=== PATIENT | female | born 1950 | race Caucasian/White ===

== ENCOUNTER 2017-06-29 13:51 | Emergency (ER) | payer BC ==
[2017-06-29 14:03] VITALS: BP 136/57
--- NOTE | 2017-06-29 14:11 | EDM.PDOC ---
ED HPI GENERAL MEDICAL PROBLEM - General Chief Complaint: Neuro Symptoms/Deficits Stated Complaint: DIZZINESS Time Seen by Provider: 06/29/17 14:02 - History of Present Illness INITIAL COMMENTS - FREE TEXT/NARRATIVE: 66-year-old female presents to the emergency room with dizziness. Patient is a history of Mnire's disease. Patient's symptoms started and they really have not gotten any better. 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 Then she spent a week in the hospital trying to get back on her feet. She has not had any hearing loss with this episode. - Related Data Allergies Allergy/AdvReac Type Severity Reaction Status Date / Time codeine AdvReac Intermediate Vomiting Verified 06/29/17 15:49 lactose AdvReac Intermediate Indigestion Verified 06/29/17 15:49 morphine AdvReac Intermediate Vomiting Verified 06/29/17 15:49 dextromethorphan HBr AdvReac Tachycardia Verified 06/29/17 15:49 [From Mucinex Cough] fluticasone propionate AdvReac Tachycardia Verified 06/29/17 15:49 [From Advair Diskus] guaifenesin AdvReac Tachycardia Verified 06/29/17 15:49 [From Mucinex Cough] salmeterol xinafoate AdvReac Tachycardia Verified 06/29/17 15:49 [From Advair Diskus] Home Meds: Home Meds Melatonin 3 mg PO BEDTIME PRN 01/19/14 [History] Sucralfate [Carafate] 1 gm PO DAILY 01/19/14 [History] Levothyroxine [Synthroid] 50 mcg PO DAILY 11/21/15 [History] Ranitidine [Zantac] 150 mg PO BID 11/21/15 [History] Naloxegol Oxalate [Movantik] 25 mg PO DAILY 11/24/15 [History] Lidocaine 5% [Lidoderm 5%] 700 mg TOP DAILY #15 patch 11/27/15 [Rx] Acetaminophen [Tylenol Extra Strength] 500 mg PO Q4HR 06/29/17 [History] Amitriptyline [Elavil] 10 mg PO BEDTIME 06/29/17 [History] Baclofen 10 mg PO BID 06/29/17 [History] Bifidobacterium Infantis [Align] 4 mg PO DAILY 06/29/17 [History] Bisacodyl [Dulcolax] 5 mg PO BEDTIME 06/29/17 [History] Calcium Carbonate [Calcium] 500 mg PO DAILY 06/29/17 [History] Dexlansoprazole [Dexilant] 60 mg PO DAILY 06/29/17 [History] Diazepam [Valium] 1 mg PO BID 06/29/17 [History] Diazepam [Valium] 5 mg PO BID #20 tab 06/29/17 [Rx] Docusate Sodium [Colace] 10 mg PO BEDTIME 06/29/17 [History] Escitalopram Oxalate [Lexapro] 30 mg PO DAILY 06/29/17 [History] Fluorometholone [Fluorometholone 0.1% Ophth Susp] 2 drop IO DAILY 06/29/17 [ History] Furosemide [Lasix] 40 mg PO DAILY 06/29/17 [History] Hydrocodone/Acetaminophen [[place] 10-325 Tablet] 10 - 325 mg PO Q4HR PRN MDD 6/ 24HR 06/29/17 [History] Levothyroxine [Levothyroxine] 50 mg PO ACBREAKFAST 06/29/17 [History] Magnesium Oxide 420 mg PO DAILY 06/29/17 [History] Alloy-3/DHA/Epa/Fish Oil [Alloy-3 Fish Oil 1,000 MG Sfgl] 1,000 mg PO DAILY 08/11 [History] Past Medical History Respiratory History: Reports: COPD Other Respiratory History: Former smoker. Other Gastrointestinal History: gastroparesis; has a g-tube x 2.5 years.patient is now able to eat and is still using G-tube feeds twice daily to supplement her protein intake. 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 has a kidney stone and bladder issues [employer] ARCHITECT History: Reports: Musculoskeletal History: Reports: Back Pain, Chronic, Osteoarthritis, Other ( See Below) Other Musculoskeletal History: neck injury Neurological History: Reports: Migraines Other Neuro History: Pt shakes when she is very cold. Pt had 6 cervicle spine surgeries after a falling off a ladder several years ago. Psychiatric History: Reports: Anxiety, Depression Endocrine/Metabolic History: Reports: Hypothyroidism Oncologic (Cancer) History: Reports: None - Infectious Disease History Infectious Disease History: Reports: Chicken Pox - Past Surgical History HEENT Surgical History: Reports: Cataract Surgery, Tonsillectomy GI Surgical History: Reports: EGD, Other (See Below) Social & Family History - Family History Cardiac: Reports: Other (See Below) Other Cardiac Family History: Grandfather had heart problems. Endocrine/Metabolic: Reports: Diabetes, type II Other Endocrine/Metabolic Family History: Pt states her sisters and mother are obese and have DM. Hematologic: Reports: None - Tobacco Use Smoking Status *Q: Never Smoker Years of Tobacco use: 30 Packs/Tins Daily: 2 Used Tobacco, but Quit: Yes Month Tobacco Last Used: 2010 Second Hand Smoke Exposure: No - Alcohol Use Days Per Week of Alcohol Use: 0 Number of Drinks Per Day: 0 Total Drinks Per Week: 0 - Recreational Drug Use Recreational Drug Use: No Drug Use in Last 12 Months: No - Living Situation & Occupation Living situation: Reports: Occupation: Unemployed ED ROS GENERAL - Review of Systems Review Of Systems: See Below Constitutional: Reports: No Symptoms. Denies: Fever, Chills HEENT: Denies: Ear Discharge, Ear Pain, Hearing Loss, Rhinitis Respiratory: Reports: No Symptoms Cardiovascular: Reports: No Symptoms Endocrine: Reports: No Symptoms GI/Abdominal: Reports: Nausea. Denies: Abdominal Pain, Black Stool, Constipation, Diarrhea, Vomiting : Reports: No Symptoms Musculoskeletal: Reports: No Symptoms Skin: Reports: No Symptoms Neurological: Reports: Gait Disturbance (Secondary to her balance) Psychiatric: Reports: No Symptoms ED EXAM, NEURO - Physical Exam Exam: See Below Exam Limited By: No Limitations General Appearance: Alert, No Apparent Distress Eye Exam: Bilateral Eye: Normal Inspection Ears: Normal External Exam, Normal Canal, Hearing Grossly Normal, Normal TMs Nose: Normal Inspection, Normal Mucosa, No Blood Throat/Mouth: Normal Inspection, Normal Lips, Normal Teeth, Normal Gums, Normal Oropharynx, Normal Voice, No Airway Compromise Head Exam: Atraumatic, Normocephalic Neck: Normal Inspection, Supple, Non-Tender, Full Range of Motion. No: Lymphadenopathy (L), Lymphadenopathy (R) Respiratory/Chest: No Respiratory Distress, Lungs Clear, Normal Breath Sounds Cardiovascular: Regular Rate, Rhythm, No Edema, No Murmur Neurological: Alert, Normal Mood/Affect, Normal Dorsiflexion, CN II-XII Intact, Normal Plantar Flexion, No Motor/Sensory Deficits, Oriented x 3 Course - Vital Signs Last Recorded V/S: Last Vital Signs Temp 36.7 C 06/29/17 13:58 Pulse Resp 15 06/29/17 13:58 BP 136/57 L 06/29/17 13:58 Pulse Ox - Orders/Labs/Meds Orders: Active Orders 24 hr Category Date Time Status EKG Documentation Completion [RC] STAT Care 06/29/17 14:11 Active RAPID PLASMA REAGIN,RPR [CHEM] Stat Lab 06/29/17 14:25 Received Labs: Laboratory Tests 06/29/17 06/29/17 06/29/17 Range/Units 14:25 14:25 14:25 WBC 6.88 (3.98-10.04) K/mm3 RBC 4.60 (3.98-5.22) M/mm3 Hgb 13.5 (11.2-15.7) gm/L Hct 43.5 (34.1-44.9) % MCV 94.6 (79.4-94.8) fl MCH 29.3 (25.6-32.2) pg MCHC 31.0 L (32.2-35.5) g/dl RDW Std Deviation 45.9 (36.4-46.3) fL Plt Count 234 (182-369) K/mm3 MPV 10.0 (9.4-12.3) fl Neutrophils % (Manual) 83 H (40-60) % Band Neutrophils % 0 (0-10) % Lymphocytes % (Manual) 6 L (20-40) % Atypical Lymphs % 7 % Monocytes % (Manual) 4 (2-10) % Eosinophils % (Manual) 0 L (0.7-5.8) % Basophils % (Manual) 0 L (0.1-1.2) Platelet Estimate Adequate Plt Morphology Comment Normal RBC Morph Comment Normal ESR 9 (0-20) mm/hr Sodium 137 (136-145) mEq/L Potassium 4.2 (3.5-5.1) mEq/L Chloride 103 (98-107) mEq/L Carbon Dioxide 28 (21-32) mEq/L Anion Gap 10.2 (5-15) BUN 7 (7-18) mg/dL Creatinine 0.9 (0.55-1.02) mg/dL Est Cr Clr Drug Dosing 47.65 mL/min Estimated GFR (MDRD) > 60 (>60) mL/min BUN/Creatinine Ratio 7.8 L (14-18) Glucose 101 (80-115) mg/dL Calcium 9.2 (8.5-10.1) mg/dL Total Bilirubin 0.2 (0.2-1.0) mg/dL AST 29 (15-37) U/L ALT 29 (14-59) U/L Alkaline Phosphatase 100 (46-116) U/L C-Reactive Protein (<1.0) mg/dL Total Protein 6.9 (6.4-8.2) g/dl Albumin 3.7 (3.4-5.0) g/dl Globulin 3.2 gm/dL Albumin/Globulin Ratio 1.2 (1-2) TSH 3rd Generation 1.094 (0.358-3.74) uIU/mL Urine Color (Yellow) Urine Appearance (Clear) Urine pH (5.0-8.0) Ur Specific [place] (1.005-1.030) Urine Protein (Negative) Urine Glucose (UA) (Negative) Urine Ketones (Negative) Urine Occult Blood (Negative) Urine Nitrite (Negative) Urine Bilirubin (Negative) Urine Urobilinogen (0.2-1.0) Ur Leukocyte Esterase (Negative) Urine RBC (0-5) /hpf Urine WBC (0-5) /hpf Ur Epithelial Cells (0-5) /hpf Urine Bacteria (FEW) /hpf Urine Mucus (FEW) /hpf 06/29/17 06/29/17 Range/Units 14:25 14:30 WBC (3.98-10.04) K/mm3 RBC (3.98-5.22) M/mm3 Hgb (11.2-15.7) gm/L Hct (34.1-44.9) % MCV (79.4-94.8) fl MCH (25.6-32.2) pg MCHC (32.2-35.5) g/dl RDW Std Deviation (36.4-46.3) fL Plt Count (182-369) K/mm3 MPV (9.4-12.3) fl Neutrophils % (Manual) (40-60) % Band Neutrophils % (0-10) % Lymphocytes % (Manual) (20-40) % Atypical Lymphs % % Monocytes % (Manual) (2-10) % Eosinophils % (Manual) (0.7-5.8) % Basophils % (Manual) (0.1-1.2) Platelet Estimate Plt Morphology Comment RBC Morph Comment ESR (0-20) mm/hr Sodium (136-145) mEq/L Potassium (3.5-5.1) mEq/L Chloride (98-107) mEq/L Carbon Dioxide (21-32) mEq/L Anion Gap (5-15) BUN (7-18) mg/dL Creatinine (0.55-1.02) mg/dL Est Cr Clr Drug Dosing mL/min Estimated GFR (MDRD) (>60) mL/min BUN/Creatinine Ratio (14-18) Glucose (80-115) mg/dL Calcium (8.5-10.1) mg/dL Total Bilirubin (0.2-1.0) mg/dL AST (15-37) U/L ALT (14-59) U/L Alkaline Phosphatase (46-116) U/L C-Reactive Protein < 0.2 (<1.0) mg/dL Total Protein (6.4-8.2) g/dl Albumin (3.4-5.0) g/dl Globulin gm/dL Albumin/Globulin Ratio (1-2) TSH 3rd Generation (0.358-3.74) uIU/mL Urine Color Yellow (Yellow) Urine Appearance Clear (Clear) Urine pH 6.5 (5.0-8.0) Ur Specific [place] 1.015 (1.005-1.030) Urine Protein Negative (Negative) Urine Glucose (UA) Negative (Negative) Urine Ketones Negative (Negative) Urine Occult Blood Negative (Negative) Urine Nitrite Negative (Negative) Urine Bilirubin Negative (Negative) Urine Urobilinogen 0.2 (0.2-1.0) Ur Leukocyte Esterase Negative (Negative) Urine RBC 0-5 (0-5) /hpf Urine WBC 0-5 (0-5) /hpf Ur Epithelial Cells 0-5 (0-5) /hpf Urine Bacteria Not seen (FEW) /hpf Urine Mucus Not seen (FEW) /hpf Meds: Medications Discontinued Medications Generic Name Dose Route Start Last Admin Trade Name Harvey PRN Reason Stop Dose Admin Diazepam 5 mg 06/29/17 14:26 06/29/17 14:36 Valium IVPUSH 06/29/17 14:27 5 mg ONETIME ONE Administration - Re-Assessments/Exams Free Text/Narrative Re-Assessment/Exam: 06/29/17 15:16 We will give her Valium 5 mg see if this helps with her symptoms the next step will be Zofran if needed. Will discuss with ear nose and throat awaiting their call back. 06/29/17 15:[address] Pineda on-call for ENT, conservative management to control symptoms and then follow-up with ENT early this next week. Records from [facility] show that apparently the patient was seen by ENT Dr. Hay at [facility] on 06-24. He was treated for sinus congestion inflammation and was having some dizziness at that time. 06/29/17 16:46 Patient is doing much better after the Valium. We will discharge her home I will give her a prescription for Valium 5 mg twice daily currently she's been taking 2 mg twice daily. 06/29/17 16:52 Departure - Departure Time of Disposition: 16:47 Disposition: Home, Self-Care 01 Clinical Impression: Dizziness, History of Meniere's disease - Discharge Information Prescriptions: Diazepam [Valium] 5 mg PO BID #20 tab Referrals: Joshua Moya MD [Primary Care Provider] - Forms: ED Department Discharge Additional Instructions: Return to emergency room if any questions problems worsening symptoms. Follow-up with your nose and throat doctor early this next week Saturday or Saturday if possible. You been given a prescription for Valium increase this to 5 mg twice daily as this seems to be helping use your meclizine as needed. - My Orders Last 24 Hours: My Active Orders 06/29/17 14:11 EKG Documentation Completion [RC] STAT 06/29/17 14:25 RAPID PLASMA REAGIN,RPR [CHEM] Stat - Assessment/Plan Last 24 Hours: My Active Orders 06/29/17 14:11 EKG Documentation Completion [RC] STAT 06/29/17 14:25 RAPID PLASMA REAGIN,RPR [CHEM] Stat
== END 2017-06-29 17:13 | disposition home or self-care (01) ==
LOC: JD.ED 13:51
DX: R42 Dizziness and giddiness (principal); Z86.69 Personal history of other diseases of the nervous system and sense organs; J44.9 Chronic obstructive pulmonary disease, unspecified; F32.9 Major depressive disorder, single episode, unspecified; E03.9 Hypothyroidism, unspecified; Z87.891 Personal history of nicotine dependence; Z79.899 Other long term (current) drug therapy; Z88.5 Allergy status to narcotic agent; Z88.8 Allergy status to other drugs, medicaments and biological substances; Z91.011 Allergy to milk products
CPT/HCPCS: 36415; 80053; 81001; 84443; 85025; 85652; 86140; 86592; 93005; 96374; 99284; J3360

== ENCOUNTER 2019-05-30 15:56 | Emergency (ER) | payer MEDICARE, BC ==
[2019-05-30 16:06] VITALS: BP 167/80; PULSE 82
[2019-05-30] MEDS ORDERED: Sodium Chloride 0.9% 10 ML Syringe FLUSH PRN (16:42)
[2019-05-30] MEDS ORDERED: Sodium Chloride 0.9% 1,000 ML IV ONE (16:42)
--- NOTE | 2019-05-30 17:28 | EDM.PDOC ---
ED HPI GENERAL MEDICAL PROBLEM - General Chief Complaint: Neurological Problem Stated Complaint: DIZZINESS Time Seen by Provider: 05/30/19 16:30 Source of Information: Reports: Patient History Limitations: Reports: No Limitations - History of Present Illness INITIAL COMMENTS - FREE TEXT/NARRATIVE: Malissa is a 58-year-old female presents today for a dizziness and confusion. She states that this afternoon she developed dizziness and nausea. She describes the dizziness as tunnel vision. She denies any lightheadedness or syncope. She reports that she was shaky in her legs would not work. She felt nauseated but did not vomit. She reports that she has headaches all the time, no change. She denies any chest pains but states that she felt short of breath. No urinary symptoms. No ear pain. No fevers, chills, nausea or vomiting. She states she has been burping up some gas. She reports she's had diarrhea for several weeks but no blood in her stool. She's also been having a decreased appetite. Feel that her symptoms today are related to not eating much and not drinking much. She also uses medical marijuana for the first time today. She also start linzess about 2-4 weeks ago. This has been causing diarrhea and a decreased appetite. She sees Dr. Moya in [place] and Dr. Powell in [place]. She is on medical marijuana for pain. - Related Data Allergies Allergy/AdvReac Type Severity Reaction Status Date / Time codeine AdvReac Intermediate Vomiting Verified 05/30/19 16:06 lactose AdvReac Intermediate Indigestion Verified 05/30/19 16:06 morphine AdvReac Intermediate Vomiting Verified 05/30/19 16:06 dextromethorphan HBr AdvReac Tachycardia Verified 05/30/19 16:06 [From Mucinex Cough] fluticasone propionate AdvReac Tachycardia Verified 05/30/19 16:06 [From Advair Diskus] guaifenesin AdvReac Tachycardia Verified 05/30/19 16:06 [From Mucinex Cough] salmeterol xinafoate AdvReac Tachycardia Verified 05/30/19 16:06 [From Advair Diskus] Home Meds: Home Meds Melatonin 3 mg PO BEDTIME PRN 01/19/14 [History] Levothyroxine [Synthroid] 50 mcg PO DAILY 11/21/15 [History] Ranitidine [Zantac] 150 mg PO BID 11/21/15 [History] Naloxegol Oxalate [Movantik] 25 mg PO DAILY 11/24/15 [History] Lidocaine 5% [Lidoderm 5%] 700 mg TOP DAILY #15 patch 11/27/15 [Rx] Acetaminophen [Tylenol Extra Strength] 500 mg PO Q4HR 06/29/17 [History] Amitriptyline [Elavil] 30 mg PO BEDTIME 06/29/17 [History] Baclofen 10 mg PO BID 06/29/17 [History] Bifidobacterium Infantis [Align] 4 mg PO DAILY 06/29/17 [History] Calcium Carbonate [Calcium] 500 mg PO DAILY 06/29/17 [History] Docusate Sodium [Colace] 10 mg PO BEDTIME 06/29/17 [History] Escitalopram Oxalate [Lexapro] 30 mg PO DAILY 06/29/17 [History] Fluorometholone [Fluorometholone 0.1% Ophth Susp] 2 drop IO DAILY 06/29/17 [ History] Furosemide [Lasix] 40 mg PO DAILY 06/29/17 [History] Hydrocodone/Acetaminophen [[place] 10-325 Tablet] 10 - 325 mg PO Q4HR PRN MDD 6/ 24HR 06/29/17 [History] Magnesium Oxide 420 mg PO DAILY 06/29/17 [History] [place]-3/DHA/Epa/Fish Oil [[place]-3 Fish Oil 1,000 MG Sfgl] 1,000 mg PO DAILY 08/11 [History] bisacodyL [Dulcolax] 5 mg PO BEDTIME 06/29/17 [History] diazePAM [Valium] 5 mg PO BID #20 tab 06/29/17 [Rx] Past Medical History Respiratory History: Reports: COPD Other Respiratory History: Former smoker. Gastrointestinal History: Reports: Chronic Constipation, Gastritis, GI Bleed Other Gastrointestinal History: gastroparesis; has a g-tube x 2.5 years.patient is now able to eat and is still using G-tube feeds twice daily to supplement her protein intake. 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 Pt had 6 cervicle spine surgeries after a falling off a ladder several years ago. Psychiatric History: Reports: Anxiety, Depression Endocrine/Metabolic History: Reports: Hypothyroidism Hematologic History: Reports: Anemia, Blood Transfusion(s) Other Hematologic History: Potassium Oncologic (Cancer) History: Reports: None - Infectious Disease History Infectious Disease History: Reports: Chicken Pox - Past Surgical History HEENT Surgical History: Reports: Cataract Surgery, Tonsillectomy GI Surgical History: Reports: EGD, Other (See Below) Other GI Surgeries/Procedures: cytocele surgery Social & Family History - Family History Family Medical History: Noncontributory Cardiac: Reports: Other (See Below) Other Cardiac Family History: Grandfather had heart problems. Endocrine/Metabolic: Reports: Diabetes, type II Other Endocrine/Metabolic Family History: Pt states her sisters and mother are obese and have DM. Hematologic: Reports: None - Tobacco Use Smoking Status *Q: Never Smoker Second Hand Smoke Exposure: No - Caffeine Use Caffeine Use: Reports: None - Recreational Drug Use Recreational Drug Use: No - Living Situation & Occupation Living situation: Reports: Occupation: Unemployed ED ROS GENERAL - Review of Systems Review Of Systems: See Below Constitutional: Reports: Decreased Appetite. Denies: Fever, Chills HEENT: Denies: Ear Pain Respiratory: Reports: Shortness of Breath Cardiovascular: Denies: Chest Pain GI/Abdominal: Denies: Nausea, Vomiting : Reports: No Symptoms Neurological: Reports: Confusion, Dizziness, Headache (constant, no change), Difficulty Walking, Weakness. Denies: Numbness, Syncope, Tingling Psychiatric: Reports: Anxiety, Confusion ED EXAM, NEURO - Physical Exam Exam: See Below Exam Limited By: No Limitations General Appearance: Alert, WD/WN, No Apparent Distress, Thin Eye Exam: Bilateral Eye: Normal Inspection, PERRL Ears: Normal External Exam, Normal Canal, Hearing Grossly Normal, Normal TMs Nose: Normal Inspection Throat/Mouth: Normal Inspection, Normal Lips, Normal Teeth, Normal Oropharynx, Normal Voice, No Airway Compromise Respiratory/Chest: No Respiratory Distress, Lungs Clear, Normal Breath Sounds Cardiovascular: Normal Peripheral Pulses, Regular Rate, Rhythm, No Murmur GI/Abdominal: Normal Bowel Sounds, Soft, Non-Tender Neurological: Alert, Normal Mood/Affect, Normal Dorsiflexion, CN II-XII Intact, Normal Plantar Flexion, Other (normal finger to nose testing, normal heel to cavanaugh testing, no pronator drift, 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 segment changes. Reviewed by myself and Dr. Macias. Course - Vital Signs Last Recorded V/S: Last Vital Signs Temp 98.2 F 05/30/19 16:03 Pulse 82 05/30/19 16:03 Resp 16 05/30/19 16:03 BP 167/80 H 05/30/19 16:03 Pulse Ox 100 05/30/19 16:03 Orthostatic Blood Pressure [ 147/71 Standing] Orthostatic Blood Pressure [ 140/64 Sitting] Orthostatic Blood Pressure [ 140/71 Supine] - Orders/Labs/Meds Orders: Active Orders 24 hr Category Date Time Status Cardiac Monitoring [RC] . DIRECTED Care 05/30/19 16:42 Active EKG Documentation Completion [RC] ASDIRECTED Care 05/30/19 16:42 Active Orthostatic Vital Signs [RC] ASDIRECTED Care 05/30/19 16:42 Active Peripheral IV Care [RC] . DIRECTED Care 05/30/19 16:42 Active Peripheral IV Insertion Adult [OM.PC] Routine Oth 05/30/19 16:42 Ordered EKG 12 Lead [EK] Stat Ther 05/30/19 16:42 Ordered Labs: Laboratory Tests 05/30/19 05/30/19 05/30/19 Range/Units 16:55 16:55 17:34 WBC 7.44 (3.98-10.04) K/mm3 RBC 4.25 (3.98-5.22) M/mm3 Hgb 12.4 (11.2-15.7) gm/dl Hct 38.0 (34.1-44.9) % MCV 89.4 (79.4-94.8) fl MCH 29.2 (25.6-32.2) pg MCHC 32.6 (32.2-35.5) g/dl RDW Std Deviation 43.9 (36.4-46.3) fL Plt Count 253 (182-369) K/mm3 MPV 9.7 (9.4-12.3) fl Neut % (Auto) 85.2 H (34.0-71.1) % Lymph % (Auto) 8.5 L (19.3-51.7) % [place] % (Auto) 5.9 (4.7-12.5) % Eos % (Auto) 0 L (0.7-5.8) Baso % (Auto) 0.4 (0.1-1.2) % Neut # (Auto) 6.34 H (1.56-6.13) K/mm3 Lymph # (Auto) 0.63 L (1.18-3.74) K/mm3 [place] # (Auto) 0.44 H (0.24-0.36) K/mm3 Eos # (Auto) 0.00 L (0.04-0.36) K/mm3 Baso # (Auto) 0.03 (0.01-0.08) K/mm3 Manual Slide Review Abnormal smear Sodium 130 L (136-145) mEq/L Potassium 3.9 (3.5-5.1) mEq/L Chloride 95 L (98-107) mEq/L Carbon Dioxide 27 (21-32) mEq/L Anion Gap 11.9 (5-15) BUN 24 H (7-18) mg/dL Creatinine 1.0 (0.55-1.02) mg/dL Est Cr Clr Drug Dosing 41.76 mL/min Estimated GFR (MDRD) 55 (>60) mL/min BUN/Creatinine Ratio 24.0 H (14-18) Glucose 145 H (80-115) mg/dL Calcium 8.9 (8.5-10.1) mg/dL Magnesium 1.7 L (1.8-2.4) mg/dl Total Bilirubin 0.2 (0.2-1.0) mg/dL AST 31 (15-37) U/L ALT 34 (14-59) U/L Alkaline Phosphatase 95 (46-116) U/L Total Protein 6.7 (6.4-8.2) g/dl Albumin 3.6 (3.4-5.0) g/dl Globulin 3.1 gm/dL Albumin/Globulin Ratio 1.2 (1-2) TSH 3rd Generation 0.724 (0.358-3.74) uIU/mL Urine Color Yellow (Yellow) Urine Appearance Clear (Clear) Urine pH 6.5 (5.0-8.0) Ur Specific [place] 1.020 (1.005-1.030) Urine Protein Negative (Negative) Urine Glucose (UA) Negative (Negative) Urine Ketones Negative (Negative) Urine Occult Blood Trace-intact H (Negative) Urine Nitrite Negative (Negative) Urine Bilirubin Negative (Negative) Urine Urobilinogen 0.2 (0.2-1.0) Ur Leukocyte Esterase Negative (Negative) Urine RBC 5-10 H (0-5) /hpf Urine WBC 0-5 (0-5) /hpf Ur Squamous Epith Cells 5-10 H (0-5) /hpf Urine Bacteria Few (FEW) /hpf Urine Mucus Few (FEW) /hpf Urine Opiates Screen (IRWVXK=381) Ur Buprenorphine Scrn (CUTOFF=10) Ur Oxycodone Screen (AUD1KS=777) Urine Methadone Screen (YANCQB=762) Ur Propoxyphene Screen (SRBRSO=849) Ur Barbiturates Screen (DQGIWU=486) Ur Tricyclics Screen (JQJABR=798) Ur Phencyclidine Scrn (CUTOFF=25) Ur Amphetamine Screen (DOOAVJ=927) U Methamphetamines Scrn (HOXUKF=190) U Benzodiazepines Scrn (SLKGYM=945) U Cocaine Metab Screen (VOOXHR=474) U Marijuana (THC) Screen (CUTOFF=50) 05/30/19 Range/Units 17:34 WBC (3.98-10.04) K/mm3 RBC (3.98-5.22) M/mm3 Hgb (11.2-15.7) gm/dl Hct (34.1-44.9) % MCV (79.4-94.8) fl MCH (25.6-32.2) pg MCHC (32.2-35.5) g/dl RDW Std Deviation (36.4-46.3) fL Plt Count (182-369) K/mm3 MPV (9.4-12.3) fl Neut % (Auto) (34.0-71.1) % Lymph % (Auto) (19.3-51.7) % [place] % (Auto) (4.7-12.5) % Eos % (Auto) (0.7-5.8) Baso % (Auto) (0.1-1.2) % Neut # (Auto) (1.56-6.13) K/mm3 Lymph # (Auto) (1.18-3.74) K/mm3 [place] # (Auto) (0.24-0.36) K/mm3 Eos # (Auto) (0.04-0.36) K/mm3 Baso # (Auto) (0.01-0.08) K/mm3 Manual Slide Review Sodium (136-145) mEq/L Potassium (3.5-5.1) mEq/L Chloride (98-107) mEq/L Carbon Dioxide (21-32) mEq/L Anion Gap (5-15) BUN (7-18) mg/dL Creatinine (0.55-1.02) mg/dL Est Cr Clr Drug Dosing mL/min Estimated GFR (MDRD) (>60) mL/min BUN/Creatinine Ratio (14-18) Glucose (80-115) mg/dL Calcium (8.5-10.1) mg/dL Magnesium (1.8-2.4) mg/dl Total Bilirubin (0.2-1.0) mg/dL AST (15-37) U/L ALT (14-59) U/L Alkaline Phosphatase (46-116) U/L Total Protein (6.4-8.2) g/dl Albumin (3.4-5.0) g/dl Globulin gm/dL Albumin/Globulin Ratio (1-2) TSH 3rd Generation (0.358-3.74) uIU/mL Urine Color (Yellow) Urine Appearance (Clear) Urine pH (5.0-8.0) Ur Specific [place] (1.005-1.030) Urine Protein (Negative) Urine Glucose (UA) (Negative) Urine Ketones (Negative) Urine Occult Blood (Negative) Urine Nitrite (Negative) Urine Bilirubin (Negative) Urine Urobilinogen (0.2-1.0) Ur Leukocyte Esterase (Negative) Urine RBC (0-5) /hpf Urine WBC (0-5) /hpf Ur Squamous Epith Cells (0-5) /hpf Urine Bacteria (FEW) /hpf Urine Mucus (FEW) /hpf Urine Opiates Screen Presumptive positive H (WQDMLB=969) Ur Buprenorphine Scrn Negative (CUTOFF=10) Ur Oxycodone Screen Negative (KOM6GO=984) Urine Methadone Screen Negative (CYRULZ=068) Ur Propoxyphene Screen Negative (VBXFXL=077) Ur Barbiturates Screen Negative (GTZIHF=773) Ur Tricyclics Screen Presumptive positive H (EAIAZR=881) Ur Phencyclidine Scrn Negative (CUTOFF=25) Ur Amphetamine Screen Negative (BIXFRT=557) U Methamphetamines Scrn Negative (SNQICQ=957) U Benzodiazepines Scrn Presumptive positive H (CVWCAO=181) U Cocaine Metab Screen Negative (QJMMXB=414) U Marijuana (THC) Screen Presumptive positive H (CUTOFF=50) Meds: Medications Discontinued Medications Generic Name Dose Route Start Last Admin Trade Name Freq PRN Reason Stop Dose Admin Sodium Chloride 1,000 mls @ 999 mls/hr 05/30/19 16:42 05/30/19 16:58 Normal Saline IV 05/30/19 17:42 999 mls/hr ONETIME ONE Administration Sodium Chloride 10 ml 05/30/19 16:42 05/30/19 16:58 Saline Flush FLUSH 10 ml ASDIRECTED PRN Administration Keep Vein Open - Radiology Interpretation Free Text/Narrative:: Head CT Technique: Multiple axial sections through the brain were obtained. Intravenous contrast was not utilized. Comparison: Prior head CT study of 11/06/09. Findings: Ventricles along with basal cisterns and sulci over the convexities are within normal limits for the patient's age. No abnormal parenchymal densities are seen. No evidence of intracranial hemorrhage. No midline shift or mass effect is present. No midline shift or mass effect is seen. Bone window settings were reviewed. Visualized mastoid sinuses and paranasal sinuses are clear. No acute calvarial abnormality is appreciated. Impression: 1. Nothing acute is seen on noncontrast head CT exam. Diagnostic code #1 This report was dictated in [place] Standard Time - Re-Assessments/Exams Free Text/Narrative Re-Assessment/Exam: 05/30/19 19:07 I reviewed her labs, ekg and head CT with her. She reprots feeling greatly improved after the IV fluids. I feel her symptoms are most likely caused by her multiple medications and some slight dehydration. I will discharge her home at this time. Discharge instructions as documented. Departure - Departure Time of Disposition: 19:07 Disposition: Home, Self-Care 01 Condition: Good Clinical Impression: Dehydration, Hyponatremia - Discharge Information *PRESCRIPTION DRUG MONITORING PROGRAM REVIEWED*: No *COPY OF PRESCRIPTION DRUG MONITORING REPORT IN PATIENT HARSH: No Instructions: Hyponatremia, [id number], Dehydration, Adult, [id number] Referrals: Joshua Moya MD [Primary Care Provider] - Forms: ED Department Discharge Additional Instructions: Recommend drinking plenty of fluids. You may also increase your salt intake. Follow-up with your primary care provider if your symptoms continue. Please return the ER for symptoms change or worsen. Sepsis Event Note - Evaluation Sepsis Screening Result: No Definite Risk - Focused Exam Vital Signs: Vital Signs Temp Pulse Resp BP Pulse Ox 05/30/19 16:03 98.2 F 82 16 167/80 H 100 Date Exam was Performed: 05/30/19 Time Exam was Performed: 20:25 - My Orders Last 24 Hours: My Active Orders 05/30/19 16:42 Cardiac Monitoring [RC] . DIRECTED EKG Documentation Completion [RC] ASDIRECTED Orthostatic Vital Signs [RC] ASDIRECTED Peripheral IV Care [RC] . DIRECTED Peripheral IV Insertion Adult [OM.PC] Routine EKG 12 Lead [EK] Stat - Assessment/Plan Last 24 Hours: My Active Orders 05/30/19 16:42 Cardiac Monitoring [RC] . DIRECTED EKG Documentation Completion [RC] ASDIRECTED Orthostatic Vital Signs [RC] ASDIRECTED Peripheral IV Care [RC] . DIRECTED Peripheral IV Insertion Adult [OM.PC] Routine EKG 12 Lead [EK] Stat
--- NOTE | 2019-05-30 17:47 | CT ---
Head CT Technique: Multiple axial sections through the brain were obtained. Intravenous contrast was not utilized. Comparison: Prior head CT study of 11/06/09. Findings: Ventricles along with basal cisterns and sulci over the convexities are within normal limits for the patient's age. No abnormal parenchymal densities are seen. No evidence of intracranial hemorrhage. No midline shift or mass effect is present. No midline shift or mass effect is seen. Bone window settings were reviewed. Visualized mastoid sinuses and paranasal sinuses are clear. No acute calvarial abnormality is appreciated. Impression: 1. Nothing acute is seen on noncontrast head CT exam. Diagnostic code #1 This report was dictated in [place] Standard Time
== END 2019-05-30 19:30 | disposition home or self-care (01) ==
LOC: JD.ED 15:56
DX: E86.0 Dehydration (principal); E87.1 Hypo-osmolality and hyponatremia; J44.9 Chronic obstructive pulmonary disease, unspecified; M19.90 Unspecified osteoarthritis, unspecified site; F41.9 Anxiety disorder, unspecified; F32.9 Major depressive disorder, single episode, unspecified; E03.9 Hypothyroidism, unspecified; Z87.891 Personal history of nicotine dependence; Z88.5 Allergy status to narcotic agent; Z88.8 Allergy status to other drugs, medicaments and biological substances; Z79.899 Other long term (current) drug therapy
CPT/HCPCS: 36415; 70450; 80053; 80306; 81001; 83735; 84443; 85025; 93005; 96360; 99284; J7030; 93010

== ENCOUNTER 2019-06-02 16:11 | Emergency (ER) | payer MEDICARE, BC ==
[2019-06-02 16:35] VITALS: BP 142/95; PULSE 69
--- NOTE | 2019-06-02 17:47 | EDM.PDOC ---
ED HPI GENERAL MEDICAL PROBLEM - General Chief Complaint: Neurological Problem Stated Complaint: DIZZINESS Time Seen by Provider: 06/02/19 17:02 - History of Present Illness INITIAL COMMENTS - FREE TEXT/NARRATIVE: 68-year-old female presents to the emergency room with dizziness and just not feeling like herself. The patient for the second time tried medicinal marijuana edibles for her chronic neck and back pain. The last time she did that she ended up in here and was not fully evaluated for dizziness. She tried it again today she is lost her appetite she is dizzy the dizziness does not seem to correlate with activity turning her head standing up or position changes. She just does not feel herself and feels odd. - Related Data Allergies Allergy/AdvReac Type Severity Reaction Status Date / Time codeine AdvReac Intermediate Vomiting Verified 05/30/19 16:06 lactose AdvReac Intermediate Indigestion Verified 05/30/19 16:06 morphine AdvReac Intermediate Vomiting Verified 05/30/19 16:06 dextromethorphan HBr AdvReac Tachycardia Verified 05/30/19 16:06 [From Mucinex Cough] fluticasone propionate AdvReac Tachycardia Verified 05/30/19 16:06 [From Advair Diskus] guaifenesin AdvReac Tachycardia Verified 05/30/19 16:06 [From Mucinex Cough] salmeterol xinafoate AdvReac Tachycardia Verified 05/30/19 16:06 [From Advair Diskus] Home Meds: Home Meds Melatonin 3 mg PO BEDTIME PRN 01/19/14 [History] Levothyroxine [Synthroid] 50 mcg PO DAILY 11/21/15 [History] Ranitidine [Zantac] 150 mg PO BID 11/21/15 [History] Naloxegol Oxalate [Movantik] 25 mg PO DAILY 11/24/15 [History] Acetaminophen [Tylenol Extra Strength] 500 mg PO Q4HR 06/29/17 [History] Amitriptyline [Elavil] 30 mg PO BEDTIME 06/29/17 [History] Baclofen 10 mg PO BID 06/29/17 [History] Bifidobacterium Infantis [Align] 4 mg PO DAILY 06/29/17 [History] Calcium Carbonate [Calcium] 500 mg PO DAILY 06/29/17 [History] Docusate Sodium [Colace] 10 mg PO BEDTIME 06/29/17 [History] Escitalopram Oxalate [Lexapro] 30 mg PO DAILY 06/29/17 [History] Fluorometholone [Fluorometholone 0.1% Ophth Susp] 2 drop IO DAILY 06/29/17 [ History] Furosemide [Lasix] 40 mg PO DAILY 06/29/17 [History] Hydrocodone/Acetaminophen [[place] 10-325 Tablet] 10 - 325 mg PO Q4HR PRN MDD 6/ 24HR 06/29/17 [History] Magnesium Oxide 420 mg PO DAILY 06/29/17 [History] [place]-3/DHA/Epa/Fish Oil [[place]-3 Fish Oil 1,000 MG Sfgl] 1,000 mg PO DAILY 08/11 [History] bisacodyL [Dulcolax] 5 mg PO BEDTIME 06/29/17 [History] diazePAM [Valium] 5 mg PO BID #20 tab 06/29/17 [Rx] Medical Marijuana 1 applic PO ASDIRECTED 06/02/19 [History] Past Medical History Respiratory History: Reports: COPD Other Respiratory History: Former smoker. Gastrointestinal History: Reports: Chronic Constipation, Gastritis, GI Bleed Other Gastrointestinal History: gastroparesis; has a g-tube x 2.5 years.patient is now able to eat and is still using G-tube feeds twice daily to supplement her protein intake. 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 Pt had 6 cervicle spine surgeries after a falling off a ladder several years ago. Psychiatric History: Reports: Anxiety, Depression Endocrine/Metabolic History: Reports: Hypothyroidism Hematologic History: Reports: Anemia, Blood Transfusion(s) Other Hematologic History: Potassium Oncologic (Cancer) History: Reports: None - Infectious Disease History Infectious Disease History: Reports: Chicken Pox - Past Surgical History HEENT Surgical History: Reports: Cataract Surgery, Tonsillectomy GI Surgical History: Reports: EGD, Other (See Below) Other GI Surgeries/Procedures: cytocele surgery Social & Family History - Family History Family Medical History: Noncontributory Cardiac: Reports: Other (See Below) Other Cardiac Family History: Grandfather had heart problems. Endocrine/Metabolic: Reports: Diabetes, type II Other Endocrine/Metabolic Family History: Pt states her sisters and mother are obese and have DM. Hematologic: Reports: None - Tobacco Use Smoking Status *Q: Former Smoker Used Tobacco, but Quit: Yes Month/Year Tobacco Last Used: 2014 - Caffeine Use Caffeine Use: Reports: Soda - Recreational Drug Use Recreational Drug Use: No - Living Situation & Occupation Living situation: Reports: Occupation: Unemployed ED ROS GENERAL - Review of Systems Review Of Systems: See Below Constitutional: Reports: Other (No ambition she does not feel like she can do anything). Denies: No Symptoms, Fever, Chills HEENT: Reports: No Symptoms Respiratory: Reports: No Symptoms Cardiovascular: Reports: No Symptoms Endocrine: Reports: No Symptoms GI/Abdominal: Reports: Anorexia. Denies: No Symptoms, Abdominal Pain, Constipation, Diarrhea, Nausea, Vomiting : Reports: No Symptoms Musculoskeletal: Reports: No Symptoms Skin: Reports: No Symptoms Neurological: Reports: Confusion, Dizziness. Denies: Headache Psychiatric: Reports: No Symptoms Hematologic/Lymphatic: Reports: No Symptoms Immunologic: Reports: No Symptoms ED EXAM, GENERAL - Physical Exam Exam: See Below Exam Limited By: No Limitations General Appearance: Alert, No Apparent Distress Eye Exam: Bilateral Eye: EOMI, Normal Inspection, PERRL Ears: Normal External Exam, Normal Canal, Hearing Grossly Normal, Normal TMs Nose: Normal Inspection, Normal Mucosa, No Blood Throat/Mouth: Normal Inspection, Normal Lips, Normal Gums, Normal Oropharynx, Normal Voice, No Airway Compromise. No: Normal Teeth (Dentures in place) Head: Atraumatic, Normocephalic Neck: Normal Inspection, Supple, Non-Tender, Full Range of Motion. No: Lymphadenopathy (L), Lymphadenopathy (R) Respiratory/Chest: No Respiratory Distress, Lungs Clear, Normal Breath Sounds Cardiovascular: Regular Rate, Rhythm, No Edema, No Murmur GI/Abdominal: Normal Bowel Sounds, Soft, Non-Tender Back Exam: Normal Inspection. No: CVA Tenderness (L), CVA Tenderness (R) Extremities: Normal Inspection, No Pedal Edema Neurological: Other (No nerves II through XII grossly intact all muscle groups the upper extremities are equal and appropriate bilaterally deep tendon reflexes at the brachioradialis are normal. Hallpike's maneuver is unrevealing. ) Course - Vital Signs Last Recorded V/S: Last Vital Signs Temp 37.2 C 06/02/19 16:34 Pulse 69 06/02/19 16:34 Resp 20 06/02/19 16:34 BP 142/95 H 06/02/19 16:34 Pulse Ox 97 06/02/19 16:34 - Re-Assessments/Exams Free Text/Narrative Re-Assessment/Exam: 06/02/19 17:48 I had a discussion with the patient about the use of the medicinal marijuana edibles that she is used twice so far both times she is ended up in the emergency room. Seems reasonable to stop using this she agrees. Departure - Departure Time of Disposition: 17:49 Disposition: Home, Self-Care 01 Clinical Impression: Medical cannabis use - Discharge Information Referrals: Joshua Moya MD [Primary Care Provider] - Additional Instructions: Return to the emergency room with any questions problems or worsening symptoms. It is probably best to stop using the medical marijuana it does not seem to agree with your system. Sepsis Event Note - Evaluation Sepsis Screening Result: No Definite Risk - Focused Exam Vital Signs: Vital Signs Temp Pulse Resp BP Pulse Ox 06/02/19 16:34 37.2 C 69 20 142/95 H 97 Date Exam was Performed: 06/02/19 Time Exam was Performed: 17:42
== END 2019-06-02 17:57 | disposition home or self-care (01) ==
LOC: JD.ED 16:11
DX: R42 Dizziness and giddiness (principal); T40.7X5A Adverse effect of cannabis (derivatives), initial encounter; F12.90 Cannabis use, unspecified, uncomplicated; J44.9 Chronic obstructive pulmonary disease, unspecified; E03.9 Hypothyroidism, unspecified; F32.9 Major depressive disorder, single episode, unspecified; F41.9 Anxiety disorder, unspecified; Z88.5 Allergy status to narcotic agent; Z88.6 Allergy status to analgesic agent; Z88.8 Allergy status to other drugs, medicaments and biological substances; Z87.891 Personal history of nicotine dependence; Z79.890 Hormone replacement therapy; Z79.899 Other long term (current) drug therapy; Z91.011 Allergy to milk products
CPT/HCPCS: 99281; 99283

== ENCOUNTER 2021-03-28 13:00 | Emergency (ER) | payer MEDICARE, BC ==
[2021-03-28] MEDS ORDERED: Glucagon,Human Recombinant 1 MG Vial IVPUSH ONE (13:05)
[2021-03-28] MEDS ORDERED: LORazepam 2 MG/ML SDV IM ONE (13:05)
[2021-03-28] MEDS ORDERED: Glucagon,Human Recombinant 1 MG Vial ONE (13:07)
[2021-03-28] MEDS ORDERED: Sodium Chloride 0.9% 10 ML Syringe FLUSH PRN (13:07)
[2021-03-28] MEDS ORDERED: LORazepam 2 MG/ML SDV ONE (13:07)
--- NOTE | 2021-03-28 13:14 | EDM.PDOC ---
ED HPI GENERAL MEDICAL PROBLEM - General Chief Complaint: Gastrointestinal Problem Stated Complaint: APOLINAR AMB Time Seen by Provider: 03/28/21 13:06 Source of Information: Reports: Patient History Limitations: Reports: No Limitations - History of Present Illness INITIAL COMMENTS - FREE TEXT/NARRATIVE: 70-year-old female presents the emergency department today with complaints of a food bolus. Patient states that about an hour prior to arrival she was eating some chicken that seem to get caught in her throat. She is awake, alert and oriented and O2 saturations are 98% on room air. She states she has had this happen in the past however she has not ever had to have surgical intervention and it eventually did go down. Upper Epigastric Pain Score (Numeric/FACES): 6 - Related Data Allergies Allergy/AdvReac Type Severity Reaction Status Date / Time codeine AdvReac Intermediate Vomiting Verified 03/28/21 13:07 lactose AdvReac Intermediate Indigestion Verified 03/28/21 13:07 morphine AdvReac Intermediate Vomiting Verified 03/28/21 13:07 dextromethorphan HBr AdvReac Tachycardia Verified 03/28/21 13:07 [From Mucinex Cough] fluticasone propionate AdvReac Tachycardia Verified 03/28/21 13:07 [From Advair Diskus] guaifenesin AdvReac Tachycardia Verified 03/28/21 13:07 [From Mucinex Cough] salmeterol xinafoate AdvReac Tachycardia Verified 03/28/21 13:07 [From Advair Diskus] Home Meds: Home Meds Melatonin 3 mg PO BEDTIME PRN 01/19/14 [History] Levothyroxine [Synthroid] 50 mcg PO DAILY 11/21/15 [History] Ranitidine [Zantac] 150 mg PO BID 11/21/15 [History] Naloxegol Oxalate [Movantik] 25 mg PO DAILY 11/24/15 [History] Acetaminophen [Tylenol Extra Strength] 500 mg PO Q4HR 06/29/17 [History] Amitriptyline [Elavil] 30 mg PO BEDTIME 06/29/17 [History] Baclofen 10 mg PO BID 06/29/17 [History] Bifidobacterium Infantis [Align] 4 mg PO DAILY 06/29/17 [History] Calcium Carbonate [Calcium] 500 mg PO DAILY 06/29/17 [History] Docusate Sodium [Colace] 10 mg PO BEDTIME 06/29/17 [History] Escitalopram Oxalate [Lexapro] 30 mg PO DAILY 06/29/17 [History] Fluorometholone [Fluorometholone 0.1% Ophth Susp] 2 drop IO DAILY 06/29/17 [History] Furosemide [Lasix] 40 mg PO DAILY 06/29/17 [History] Hydrocodone/Acetaminophen [[place] 10-325 Tablet] 10 - 325 mg PO Q4HR PRN MDD 6/24HR 06/29/17 [History] Magnesium Oxide 420 mg PO DAILY 06/29/17 [History] Darden-3/DHA/Epa/Fish Oil [[place]arden-3 Fish Oil 1,000 MG Sfgl] 1,000 mg PO DAILY 06/29/17 [History] bisacodyL [Dulcolax] 5 mg PO BEDTIME 06/29/17 [History] diazePAM [Valium] 5 mg PO BID #20 tab 06/29/17 [Rx] Medical Marijuana 1 applic PO ASDIRECTED 06/02/19 [History] Past Medical History Respiratory History: Reports: COPD Other Respiratory History: Former smoker. Gastrointestinal History: Reports: Chronic Constipation, Gastritis, GI Bleed Other Gastrointestinal History: gastroparesis; has a g-tube x 2.5 years.patient is now able to eat and is still using G-tube feeds twice daily to supplement her protein intake. 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 has a kidney stone and bladder issues [employer] History: Reports: Musculoskeletal History: Reports: Back Pain, Chronic, Osteoarthritis, Other (See Below) Other Musculoskeletal History: neck injury Neurological History: Reports: Migraines Other Neuro History: Pt shakes when she is very cold. Pt had 6 cervicle spine surgeries after a falling off a ladder several years ago. Psychiatric History: Reports: Anxiety, Depression Endocrine/Metabolic History: Reports: Hypothyroidism Hematologic History: Reports: Anemia, Blood Transfusion(s) Other Hematologic History: Potassium Oncologic (Cancer) History: Reports: None - Infectious Disease History Infectious Disease History: Reports: Chicken Pox - Past Surgical History HEENT Surgical History: Reports: Cataract Surgery, Tonsillectomy GI Surgical History: Reports: EGD, Other (See Below) Other GI Surgeries/Procedures: cytocele surgery Social & Family History - Family History Family Medical History: No Pertinent Family History Cardiac: Reports: Other (See Below) Other Cardiac Family History: Grandfather had heart problems. Endocrine/Metabolic: Reports: Diabetes, type II Other Endocrine/Metabolic Family History: Pt states her sisters and mother are obese and have DM. Hematologic: Reports: None - Caffeine Use Caffeine Use: Reports: Soda - Living Situation & Occupation Living situation: Reports: Occupation: Unemployed ED ROS GENERAL - Review of Systems Review Of Systems: Comprehensive ROS is negative, except as noted in HPI. ED EXAM, GI/ABD - Physical Exam Exam: See Below Exam Limited By: No Limitations General Appearance: Alert, WD/WN, Moderate Distress (Due to inability to swallow her own secretions) Ears: Normal External Exam, Hearing Grossly Normal Nose: Normal Inspection Throat/Mouth: Normal Inspection, Normal Lips, Normal Voice, No Airway Compromise, Other (Spitting out saliva due to inability to swallow own secretions) Head: Atraumatic, Normocephalic Neck: Normal Inspection, Supple Respiratory/Chest: No Respiratory Distress, Lungs Clear, Normal Breath Sounds, No Accessory Muscle Use, Chest Non-Tender Cardiovascular: Normal Peripheral Pulses, Regular Rate, Rhythm, No Edema, No Murmur GI/Abdominal Exam: Normal Bowel Sounds, Soft, Non-Tender, No Distention (Female) Exam: Deferred Rectal (Female) Exam: Deferred Back Exam: Normal Inspection Extremities: Normal Inspection Neurological: Alert, Oriented, Normal Cognition Psychiatric: Anxious Skin Exam: Warm, Dry, Intact, Normal Color, No Rash Lymphatic: No Adenopathy Course - Vital Signs Text/Narrative:: As stated above, patient presents with a food bolus of chicken. Vitals are stable at this time and O2 saturations are 98% on room air. Patient is holding an emesis bag in front of her and is unable to swallow her secretions. She does complain of some discomfort to her chest. Lung sounds are clear. Do not appreciate any subcu air. Will medicate the patient with 1 mg of glucagon and 1 mg of Ativan to see if we can get her esophagus to relax. Will reevaluate in 20 to 30 minutes and obtain surgical consult if the patient is unable to pass the food bolus. We will also obtain baseline lab studies and a Covid swab just in case the patient may have to go to surgery. Last Recorded V/S: Last Vital Signs Temp 98.0 F 03/28/21 13:00 Pulse 67 03/28/21 13:41 Resp 18 03/28/21 13:41 BP 144/85 H 03/28/21 13:41 Pulse Ox 95 03/28/21 13:41 - Orders/Labs/Meds Orders: Active Orders 24 hr Category Date Time Status CORONAVIRUS COVID-19 FANI [MOLEC] Stat Lab 03/28/21 13:08 Ordered PTT,PARTIAL THROMBOPLSTIN TIME [COAG] Stat Lab 03/28/21 13:05 Received Sodium Chloride 0.9% [Saline Flush] Med 03/28/21 13:07 Active 10 ml FLUSH ASDIRECTED PRN Saline Lock Insert [OM.PC] Stat Oth 03/28/21 13:07 Ordered Medication Orders Sodium Chloride (Sodium Chloride 0.9% 10 Ml Syringe) 10 ml FLUSH ASDIRECTED PRN PRN Reason: Keep Vein Open Last Admin: 03/28/21 13:16 Dose: 10 ml Documented by: TAMMY Labs: Laboratory Tests 03/28/21 03/28/21 03/28/21 Range/Units 13:05 13:05 13:05 WBC 14.49 H (3.98-10.04) K/mm3 RBC 5.13 (3.98-5.22) M/mm3 Hgb 13.6 (11.2-15.7) gm/dl Hct 43.4 (34.1-44.9) % MCV 84.6 D (79.4-94.8) fl MCH 26.5 (25.6-32.2) pg MCHC 31.3 L (32.2-35.5) g/dl RDW Std Deviation 46.4 H (36.4-46.3) fL Plt Count 339 D (182-369) K/mm3 MPV 9.4 (9.4-12.3) fl Neut % (Auto) 75.4 H (34.0-71.1) % Lymph % (Auto) 15.5 L (19.3-51.7) % [place] % (Auto) 8.5 (4.7-12.5) % Eos % (Auto) 0.2 L (0.7-5.8) Baso % (Auto) 0.1 (0.1-1.2) % Neut # (Auto) 10.92 H (1.56-6.13) K/mm3 Lymph # (Auto) 2.25 (1.18-3.74) K/mm3 [place] # (Auto) 1.23 H (0.24-0.36) K/mm3 Eos # (Auto) 0.03 L (0.04-0.36) K/mm3 Baso # (Auto) 0.01 (0.01-0.08) K/mm3 PT 10.0 (9.7-12.0) SECONDS INR < 0.93 Sodium 136 (136-145) mEq/L Potassium 3.3 L (3.5-5.1) mEq/L Chloride 97 L (98-107) mEq/L Carbon Dioxide 29 (21-32) mEq/L Anion Gap 13.3 (5-15) BUN 23 H (7-18) mg/dL Creatinine 1.0 (0.55-1.02) mg/dL Est Cr Clr Drug Dosing 40.48 mL/min Estimated GFR (MDRD) 55 (>60) mL/min BUN/Creatinine Ratio 23.0 H (14-18) Glucose 102 H (70-99) mg/dL Calcium 9.8 (8.5-10.1) mg/dL Magnesium 2.0 (1.8-2.4) mg/dL Total Bilirubin 0.4 (0.2-1.0) mg/dL AST 27 (15-37) U/L ALT 39 (14-59) U/L Alkaline Phosphatase 61 (46-116) U/L Total Protein 7.5 (6.4-8.2) g/dl Albumin 3.7 (3.4-5.0) g/dl Globulin 3.8 gm/dL Albumin/Globulin Ratio 1.0 (1-2) Meds: Medications Generic Name Dose Route Start Last Admin Trade Name Freq PRN Reason Stop Dose Admin Sodium Chloride 10 ml 03/28/21 13:07 03/28/21 13:16 Sodium Chloride 0.9% 10 Ml Syringe FLUSH 10 ml ASDIRECTED PRN Administration Keep Vein Open Discontinued Medications Generic Name Dose Route Start Last Admin Trade Name Freq PRN Reason Stop Dose Admin Glucagon 1 mg 03/28/21 13:05 03/28/21 13:16 Glucagon,Human Recombinant 1 Mg Vial IVPUSH 03/28/21 13:06 1 mg ONETIME ONE Administration Glucagon Confirm 03/28/21 13:07 03/28/21 13:16 Glucagon,Human Recombinant 1 Mg Vial Administered 03/28/21 13:08 Not Given Dose 1 mg .ROUTE .STK-MED ONE Lorazepam 1 mg 03/28/21 13:05 Lorazepam 2 Mg/Ml Sdv IM 03/28/21 13:06 ONETIME ONE Lorazepam Confirm 03/28/21 13:07 03/28/21 13:15 Lorazepam 2 Mg/Ml Sdv Administered 03/28/21 13:08 Not Given Dose 2 mg .ROUTE .STK-MED ONE Lorazepam 1 mg 03/28/21 13:19 03/28/21 13:21 Lorazepam 2 Mg/Ml Sdv IVPUSH 03/28/21 13:20 1 mg ONETIME ONE Administration Potassium Chloride 40 meq 03/28/21 14:28 Potassium Chloride 20 Meq Tab.Er PO 03/28/21 14:29 ONETIME ONE - Re-Assessments/Exams Free Text/Narrative Re-Assessment/Exam: 03/28/21 13:31 Patient feels as though food bolus has passed into her stomach. Nursing staff has given her Sprite to drink and she is able to tolerate that just fine. We will observe her for a bit and then likely she will be discharged home. 03/28/21 14:30 Hemotology reveals a WBC of 14.49, hemoglobin 13.6, hematocrit 43.4, platelet count 339 Coagulation reveals a pro time of 10.0, INR less than 0.93 Chemistry reveals a sodium of 136, potassium 3.3, chloride 97, anion gap 13.3, BUN 23, creatinine 1.0, glucose 102, magnesium 2.0 Suspect white count is elevated due to stress response. Will supplement patient's potassium with an oral dose and then she will be discharged home. Departure - Departure Time of Disposition: 14:31 Disposition: Home, Self-Care 01 Condition: Good Clinical Impression: Food impaction of esophagus Qualifiers: Encounter type: initial encounter Qualified Code(s): T18.128A - Food in esophagus causing other injury, initial encounter - Discharge Information Referrals: Joshua Moya MD [Primary Care Provider] - Forms: ED Department Discharge Additional Instructions: You are seen in the emergency department today with complaints of food impaction after eating some chicken. While in your emergency department you did receive medication to relax you are esophagus and this did seem to work. You were able to drink soda without difficulty once the food had passed. Lab studies were completed and did show your potassium level was slightly low so you did receive oral potassium supplementation to treat this. Go home, rest, and drink plenty of fluids. Recommend that you eat a soft diet and chew your food thoroughly prior to swallowing it. Follow-up with your primary care provider in about 1 week to reevaluate your potassium levels. Sepsis Event Note (ED) - Focused Exam Vital Signs: Vital Signs Temp Pulse Resp BP Pulse Ox 03/28/21 13:41 67 18 144/85 H 95 03/28/21 13:00 98.0 F 100 24 H 157/86 H 96 - My Orders Last 24 Hours: My Active Orders 03/28/21 13:05 PTT,PARTIAL THROMBOPLSTIN TIME [COAG] Stat 03/28/21 13:07 Sodium Chloride 0.9% [Saline Flush] 10 ml FLUSH ASDIRECTED PRN Saline Lock Insert [OM.PC] Stat 03/28/21 13:08 CORONAVIRUS COVID-19 FANI [MOLEC] Stat - Assessment/Plan Last 24 Hours: My Active Orders 03/28/21 13:05 PTT,PARTIAL THROMBOPLSTIN TIME [COAG] Stat 03/28/21 13:07 Sodium Chloride 0.9% [Saline Flush] 10 ml FLUSH ASDIRECTED PRN Saline Lock Insert [OM.PC] Stat 03/28/21 13:08 CORONAVIRUS COVID-19 FANI [MOLEC] Stat
[2021-03-28] MEDS ORDERED: LORazepam 2 MG/ML SDV IVPUSH ONE (13:19)
[2021-03-28] MEDS ORDERED: Potassium Chloride 20 MEQ Tab.ER PO ONE (14:28)
[2021-03-28 14:58] VITALS: BP 145/88; PULSE 95
== END 2021-03-28 15:01 | disposition home or self-care (01) ==
LOC: JD.ED 13:00 → SUPCPDRO 13:00 → JD.ED 15:01
DX: T18.128A Food in esophagus causing other injury, initial encounter (principal); J44.9 Chronic obstructive pulmonary disease, unspecified; E03.9 Hypothyroidism, unspecified; Z87.891 Personal history of nicotine dependence; Z79.899 Other long term (current) drug therapy
CPT/HCPCS: 36415; 80053; 83735; 85025; 85610; 85730; 96374; 96375; 99284; A9270; J1610; J2060

== ENCOUNTER 2021-06-12 07:57 | Day surgery (SDC) | payer MEDICARE, BC ==
[~2021-06-12 07:57] MED LIST: EPINEPHrine 0.3 MG, Cefuroxime 750 MG, Ketorolac 30 MG, Sodium Chloride 0.9% 7.9 ML PRN; EPINEPHrine 1 MG/ML SDV ONE; Lactated Ringers 1,000 ML IV SCH; Levalbuterol HCl 1.25 MG/3 ML Neb NEB PRN; Lidocaine 1%/Sod Bicarbonate in NS 8.4% 1 ML Syringe IDERM PRN; Midazolam 1 MG/ML 2 ML SDV ONE; Ropivacaine 0.5% 5 MG/ML 30 ML SDV ONE; Sodium Chloride 0.9% 10 ML Syringe FLUSH SCH; ceFAZolin 1 GM Vial ONE; fentaNYL 100 MCG/2 ML SDV ONE
[2021-06-12] MEDS ORDERED: Metoclopramide 10 MG/2 ML SDV IVPUSH PRN (08:49)
[2021-06-12] MEDS ORDERED: Citric Acid/Sodium Citrate Solution 30 ML Cup PO ONE (08:50)
[2021-06-12] MEDS ORDERED: Propofol 200 MG/20 ML SDV ONE (08:52)
[2021-06-12] MEDS ORDERED: Dexmedetomidine 200 MCG/2 ML SDV ONE (09:34)
[2021-06-12] MEDS ORDERED: Midazolam 1 MG/ML 2 ML SDV ONE (10:00)
[2021-06-12] MEDS ORDERED: Lidocaine 1% 2 ML ONE (10:11)
[2021-06-12] MEDS ORDERED: Ondansetron 4 MG/2 ML SDV IVPUSH PRN (10:59)
[2021-06-12] MEDS ORDERED: fentaNYL 100 MCG/2 ML SDV IVPUSH PRN (10:59)
[2021-06-12] MEDS: EPINEPHrine 0.3 MG, Cefuroxime 750 MG, Ketorolac 30 MG, Sodium Chloride 0.9% 7.9 ML PRN ×8 (11:06→11:12)
[2021-06-12] MEDS: Vancomycin 1 GM SDV ONE ×2 (11:08→11:20)
[2021-06-12] MEDS: Bupivacaine 0.25% 10 ML SDV ONE ×2 (11:08→11:50)
[2021-06-12] MEDS: Triamcinolone Acetonide 40 MG/ML 1 ML SDV ONE ×2 (11:09→11:50)
[2021-06-12] MEDS ORDERED: Famotidine 20 MG/2 ML SDV IVPUSH ONE (12:30)
[2021-06-12] MEDS ORDERED: oxyCODONE 5 MG Tab PO ONE (13:39)
[2021-06-12 17:01] VITALS: BP 124/57; PULSE 62
== END 2021-06-12 16:55 | disposition home or self-care (01) ==
LOC: JD.SDS 07:57
PROVIDERS: ATTEND Orthopaedic Surgery
DX: M17.0 Bilateral primary osteoarthritis of knee (principal); K21.9 Gastro-esophageal reflux disease without esophagitis; J44.9 Chronic obstructive pulmonary disease, unspecified; E03.9 Hypothyroidism, unspecified; M81.0 Age-related osteoporosis without current pathological fracture; G62.9 Polyneuropathy, unspecified; Z98.890 Other specified postprocedural states; Z79.899 Other long term (current) drug therapy; Z88.8 Allergy status to other drugs, medicaments and biological substances; Z88.5 Allergy status to narcotic agent; Z87.891 Personal history of nicotine dependence
CPT/HCPCS: 20610; 27447; 73560; 97110; 97116; 97161; A9270; C1713; C1776; J0171; J0690; J0697; J1885; J2250; J2370; J2405; J2704; J2765; J2795; J3010; J3301; J3370; J3490; J7120; 01402; 64450; 76942

== ENCOUNTER 2021-06-13 15:14 | Emergency (ER) | payer MEDICARE, BC ==
[2021-06-13 15:47] VITALS: BP 116/71; PULSE 82
[2021-06-13] MEDS ORDERED: Sodium Chloride 0.9% 10 ML Syringe FLUSH PRN (16:25)
[2021-06-13] MEDS ORDERED: Sodium Chloride 0.9% 1,000 ML IV STA (16:25)
[2021-06-13] MEDS ORDERED: Loperamide 2 MG Cap PO ONE ×2 (16:26→16:57)
[2021-06-13] MEDS ORDERED: Potassium Chloride 20 MEQ Tab.ER PO ONE ×2 (17:32→18:51)
[2021-06-13] MEDS: Potassium Chloride 10 MEQ in Premix Bag 1 BAG IV SCH ×2 (18:09→18:23)
== END 2021-06-13 19:31 | disposition home or self-care (01) ==
LOC: SUPCPDRO 15:14 → JD.ED 15:14
DX: R19.7 Diarrhea, unspecified (principal); J44.9 Chronic obstructive pulmonary disease, unspecified; E78.00 Pure hypercholesterolemia, unspecified; E03.9 Hypothyroidism, unspecified; Z88.5 Allergy status to narcotic agent; Z88.8 Allergy status to other drugs, medicaments and biological substances; Z91.011 Allergy to milk products; Z79.899 Other long term (current) drug therapy; Z79.01 Long term (current) use of anticoagulants
CPT/HCPCS: 36415; 80053; 83735; 85025; 86140; 99284; A9270; J3480; J7030

== ENCOUNTER 2022-10-18 09:44 | Emergency (ER) | payer BC, MEDICARE ==
[2022-10-18 09:55] VITALS: BP 168/90; PULSE 94
[2022-10-18] MEDS ORDERED: Lactated Ringers 1,000 ML IV ONE ×2 (10:43→16:17)
[2022-10-18] MEDS ORDERED: Ondansetron 4 MG/2 ML SDV IVPUSH ONE (10:44)
[2022-10-18 12:26] LABS: HEMATOCRIT 46.4 % (34.1-44.9); MEAN CORPUSCULAR HEMOGLOBIN 28.1 pg (25.6-32.2); MEAN CORPUSCULAR HGB CONC 32.3 g/dl (32.2-35.5); MEAN CORPUSCULAR VOLUME 87.1 fl (79.4-94.8); MEAN PLATELET VOLUME 9.5 fl (9.4-12.3); PLATELET COUNT,PLT 243 K/mm3 (182-369); RED BLOOD CELL COUNT 5.33 M/mm3 (3.98-5.22); WHITE BLOOD CELL COUNT,WBC 30.23 K/mm3 (3.98-10.04)
[2022-10-18 13:04] LABS: A/G RATIO 0.9 (1-2); ALANINE AMINOTRANSFERASE,ALT 75 U/L (14-59); ALBUMIN 3.1 g/dl (3.4-5.0); ALKALINE PHOSPHATASE 79 U/L (46-116); ANION GAP 14.2 (5-15); ASPARTATE AMNIOTRANSFERASE,AST 33 U/L (15-37); BILIRUBIN TOTAL 0.4 mg/dL (0.2-1.0); BLOOD UREA NITROGEN,BUN 34 mg/dL (7-18); BUN/CREATININE RATIO 37.8 (14-18); CALCIUM 9.4 mg/dL (8.5-10.1); CARBON DIOXIDE,CO2 27 mEq/L (21-32); CHLORIDE,CL 99 mEq/L (98-107); CREATININE 0.9 mg/dL (0.55-1.02); ESTIMATED GFR 69 mL/min (>60); GLUCOSE RANDOM 105 mg/dL (70-99); PROTEIN TOTAL,TP 6.5 g/dl (6.4-8.2); SODIUM,NA 138 mEq/L (136-145)
[2022-10-18 13:18] LABS: APPEARANCE,URINE CLEAR (Clear); BILIRUBIN,URINE NEGATIVE (Negative); COLOR,URINE YELLOW (Yellow); GLUCOSE,URINE NEGATIVE (Negative); KETONES,URINE NEGATIVE (Negative); LEUKOCYTE ESTERASE,URINE NEGATIVE (Negative); NITRITE,URINE NEGATIVE (Negative); OCCULT BLOOD,URINE TRACE-LYSED (Negative); PH,URINE 6.5 (5.0-8.0); PROTEIN,URINE TRACE (Negative); UROBILINOGEN,URINE 0.2 (0.2-1.0)
[2022-10-18 13:22] LABS: POTASSIUM,K 2.2 mEq/L (3.5-5.1)
[2022-10-18] MEDS ORDERED: Sodium Chloride 0.9% 1,000 ML IV SCH (13:45)
[2022-10-18] MEDS: Potassium Chloride 10 MEQ in Premix Bag 1 BAG IV SCH ×8 (13:52→21:47)
[2022-10-18 14:04] LABS: BACTERIA,URINE RARE /hpf (FEW); EPITHELIAL CELLS,URINE 0-5 /hpf (0-5); MUCUS,URINE FEW /hpf (FEW); RBC,URINE 0-5 /hpf (0-5); WBC,URINE 0-5 /hpf (0-5)
[2022-10-18 14:05] LABS: BAND PERCENT MAN 0 % (0-10); BASOPHILS PERCENT MAN 0 (0.1-1.2); EOSINOPHILS PERCENT MAN 0 % (0.7-5.8); LYMPHOCYTES % ATYPICAL MANUAL 0 %; LYMPHOCYTES PERCENT MAN 2 % (20-40); MONOCYTES PERCENT MAN 11 % (2-10)
[2022-10-18 14:07] LABS: PLATELET COUNT ESTIMATE ADEQUATE
[2022-10-18] MEDS ORDERED: Magnesium Oxide 400 MG Tab PO ONE (15:44)
[2022-10-18] MEDS ORDERED: Sucralfate Suspension 1 GM/10 ML Cup PO ONE (16:44)
[2022-10-18 19:44] LABS: LACTIC ACID 1.7 mmol/L (0.4-2.0)
== END 2022-10-18 23:00 | disposition home or self-care (01) ==
LOC: JD.ED 09:44
DX: K52.9 Noninfective gastroenteritis and colitis, unspecified (principal); E87.6 Hypokalemia; J44.9 Chronic obstructive pulmonary disease, unspecified; M19.90 Unspecified osteoarthritis, unspecified site; E03.9 Hypothyroidism, unspecified; Z88.8 Allergy status to other drugs, medicaments and biological substances; Z88.6 Allergy status to analgesic agent; Z88.5 Allergy status to narcotic agent; Z79.899 Other long term (current) drug therapy; Z87.891 Personal history of nicotine dependence
CPT/HCPCS: 36415; 70450; 71045; 74019; 80053; 81001; 83605; 83735; 84132; 85007; 85027; 86140; 87040; 96361; 96365; 96366; 96375; 99284; A9270; J2405; J3480; J7030; J7120

== ENCOUNTER 2023-04-29 14:35 | Emergency (ER) | payer MEDICARE, BC ==
[2023-04-29] MEDS ORDERED: Sodium Chloride 0.9% 10 ML Syringe FLUSH PRN (15:09)
[2023-04-29] MEDS ORDERED: Lactated Ringers 1,000 ML IV SCH (15:15)
[2023-04-29 15:27] LABS: BASOPHILS PERCENT AUTO 0.1 % (0.0-1.0); EOSINOPHILS PERCENT AUTO 0.2 % (0.0-6.0); HEMATOCRIT 37.3 % (37.0-47.0); HEMOGLOBIN 11.6 gm/dl (12.0-16.0); IMMATURE GRAN ABSOLUTE AUTO 0.05 K/mm3 (0.00-0.05); IMMATURE GRAN PERCENT AUTO 0.4 % (0.0-0.4); LYMPHOCYTES ABSOLUTE AUTO 1.4 K/mm3 (1.0-4.8); LYMPHOCYTES PERCENT AUTO 11.6 % (24.0-44.0); MEAN CORPUSCULAR HEMOGLOBIN 25.8 pg (28.0-32.0); MEAN CORPUSCULAR HGB CONC 31.1 g/dl (32.0-36.0); MEAN CORPUSCULAR VOLUME 83.1 fl (83.0-99.0); MEAN PLATELET VOLUME 10.2 fl (9.4-12.3); MONOCYTES ABSOLUTE AUTO 1.1 K/mm3 (0.0-0.8); MONOCYTES PERCENT AUTO 9.8 % (0.0-8.0); NEUTROPHILS ABSOLUTE AUTO 9.1 K/mm3 (1.8-7.7); NEUTROPHILS PERCENT AUTO 77.9 % (41.0-71.0); PLATELET COUNT,PLT 255 K/mm3 (150-400); RED BLOOD CELL COUNT 4.49 M/mm3 (4.10-5.30); WHITE BLOOD CELL COUNT,WBC 11.68 K/mm3 (3.9-11.3)
[2023-04-29 15:34] VITALS: PULSE 69
[2023-04-29 15:52] LABS: ALBUMIN 2.9 g/dl (3.4-5.0); ANION GAP 14.5 (5-15); BILIRUBIN TOTAL 0.3 mg/dL (0.2-1.0); BUN/CREATININE RATIO 31.3 (14-18); CALCIUM 8.7 mg/dL (8.5-10.1); CREATININE 0.8 mg/dL (0.55-1.02); EST CRCL DRUG DOSING (CG) 49.38 mL/min; POTASSIUM,K 3.5 mEq/L (3.5-5.1); PROTEIN TOTAL,TP 5.9 g/dl (6.4-8.2)
[2023-04-29 15:58] LABS: CORONAVIRUS COVID-19 NAA NEGATIVE (NEGATIVE); INFLUENZA A NAA NEGATIVE (NEGATIVE)
[2023-04-29 18:32] VITALS: BP 155/78
== END 2023-04-29 18:25 | disposition home or self-care (01) ==
LOC: JD.ED 14:35
DX: H81.10 Benign paroxysmal vertigo, unspecified ear (principal); F17.210 Nicotine dependence, cigarettes, uncomplicated; Z90.49 Acquired absence of other specified parts of digestive tract; Z90.710 Acquired absence of both cervix and uterus; Z91.011 Allergy to milk products; Z88.5 Allergy status to narcotic agent; Z88.8 Allergy status to other drugs, medicaments and biological substances; Z79.2 Long term (current) use of antibiotics; Z79.899 Other long term (current) drug therapy; Z20.822 Contact with and (suspected) exposure to COVID-19
CPT/HCPCS: 0240U; 36415; 80053; 85025; 93005; 96360; 96361; 99285; J3490; J7120; 93010; 99282

== ENCOUNTER 2023-10-16 07:15 | Day surgery (SDC) | payer MEDICARE, BC ==
[~2023-10-16 07:15] MED LIST changes: -EPINEPHrine 0.3 MG, Cefuroxime 750 MG, Ketorolac 30 MG, Sodium Chloride 0.9% 7.9 ML PRN; -EPINEPHrine 1 MG/ML SDV ONE; -Lactated Ringers 1,000 ML IV SCH; -Levalbuterol HCl 1.25 MG/3 ML Neb NEB PRN; -Lidocaine 1%/Sod Bicarbonate in NS 8.4% 1 ML Syringe IDERM PRN; -Midazolam 1 MG/ML 2 ML SDV ONE; -Ropivacaine 0.5% 5 MG/ML 30 ML SDV ONE; +Sodium Chloride 0.9% 10 ML Syringe FLUSH PRN; -ceFAZolin 1 GM Vial ONE; -fentaNYL 100 MCG/2 ML SDV ONE
[2023-10-16 08:58] LABS: A/G RATIO 1.1 (1-2); ALBUMIN 3.4 g/dl (3.4-5.0); ANION GAP 13.2 (5-15); BILIRUBIN TOTAL 0.3 mg/dL (0.2-1.0); BUN/CREATININE RATIO 17.1 (14-18); CALCIUM 8.9 mg/dL (8.5-10.1); CREATININE 0.7 mg/dL (0.55-1.02); EST CRCL DRUG DOSING (CG) 56.43 mL/min; POTASSIUM,K 3.2 mEq/L (3.5-5.1); PROTEIN TOTAL,TP 6.4 g/dl (6.4-8.2)
[2023-10-16] MEDS ORDERED: Ondansetron 4 MG/2 ML SDV ONE (09:20)
[2023-10-16] MEDS ORDERED: Rocuronium 50 MG/5 ML Vial ONE (09:20)
[2023-10-16] MEDS ORDERED: Propofol 200 MG/20 ML SDV ONE (09:20)
[2023-10-16] MEDS ORDERED: Bupivacaine 0.5% 30 ML SDV ONE (09:23)
[2023-10-16] MEDS ORDERED: Triamcinolone Acetonide 40 MG/ML 1 ML SDV ONE (09:25)
[2023-10-16] MEDS ORDERED: Bupivacaine 0.25% 10 ML SDV ONE (09:25)
[2023-10-16] MEDS: Lactated Ringers 1,000 ML IV SCH (09:25)
[2023-10-16] MEDS ORDERED: Dexamethasone 4 MG/ML 5 ML MDV ONE (09:55)
[2023-10-16] MEDS ORDERED: Potassium Chloride 10 MEQ in Premix Bag 1 BAG IV SCH (10:00)
[2023-10-16] MEDS ORDERED: ceFAZolin 2 GM Vial ONE (10:12)
[2023-10-16] MEDS ORDERED: fentaNYL 100 MCG/2 ML SDV IVPUSH PRN (10:48)
[2023-10-16] MEDS ORDERED: HYDROmorphone 0.5 MG/0.5 ML Syringe IVPUSH PRN (10:48)
[2023-10-16] MEDS ORDERED: Ondansetron 4 MG/2 ML SDV IVPUSH PRN (10:48)
[2023-10-16] MEDS: Tranexamic Acid 1,000 MG/10 ML Vial ONE (10:58)
[2023-10-16] MEDS: Vancomycin 1 GM SDV ONE (10:58)
[2023-10-16] MEDS ORDERED: Sugammadex Sodium 200 MG/2 ML VIAL IV ONE (10:59)
[2023-10-16] MEDS ORDERED: Lactated Ringers 1,000 ML IV ONE (11:00)
[2023-10-16] MEDS ORDERED: fentaNYL 100 MCG/2 ML SDV ONE (11:05)
[2023-10-16] MEDS ORDERED: Furosemide 20 MG/2 ML VIAL ONE (11:18)
[2023-10-16] MEDS ORDERED: oxyCODONE 5 MG Tab PO PRN (12:08)
[2023-10-16 13:21] VITALS: BP 134/72; PULSE 70
== END 2023-10-16 14:11 | disposition home or self-care (01) ==
LOC: JD.SDS 07:15
PROVIDERS: ATTEND Orthopaedic Surgery
DX: M19.012 Primary osteoarthritis, left shoulder (principal); M17.12 Unilateral primary osteoarthritis, left knee; E03.4 Atrophy of thyroid (acquired); J43.8 Other emphysema; M81.0 Age-related osteoporosis without current pathological fracture; K21.9 Gastro-esophageal reflux disease without esophagitis; E78.2 Mixed hyperlipidemia; G62.9 Polyneuropathy, unspecified; F33.9 Major depressive disorder, recurrent, unspecified; J44.9 Chronic obstructive pulmonary disease, unspecified; Z87.891 Personal history of nicotine dependence; Z79.890 Hormone replacement therapy; Z79.899 Other long term (current) drug therapy; Z88.6 Allergy status to analgesic agent; Z88.5 Allergy status to narcotic agent; Z88.8 Allergy status to other drugs, medicaments and biological substances
CPT/HCPCS: 36415; 76000; 76000-26; 80053; 97161-GP; 97530-GP; C1713; C1769; C1776; J0665; J0690; J1100; J1596; J1940; J2405; J2704; J3010; J3301; J3370; J3480; J3490; J7120

== ENCOUNTER 2024-11-16 07:00 | Day surgery (SDC) | payer MEDICARE, BC ==
[2024-11-16] MEDS: Lactated Ringers 1,000 ML IV SCH (07:25)
[2024-11-16] MEDS ORDERED: fentaNYL 100 MCG/2 ML SDV IVPUSH PRN (07:36)
[2024-11-16] MEDS ORDERED: Sodium Chloride 0.9% 10 ML Syringe FLUSH PRN (07:36)
[2024-11-16] MEDS ORDERED: Ondansetron 4 MG/2 ML SDV IVPUSH PRN (07:36)
[2024-11-16] MEDS ORDERED: HYDROmorphone 0.5 MG/0.5 ML Syringe IVPUSH PRN (07:36)
[2024-11-16] MEDS ORDERED: Chloroprocaine 3% 30 MG/ML 20 ML SDV ONE (07:40)
[2024-11-16] MEDS ORDERED: propofoL 500 MG/50 ML 50 ML ONE (07:42)
[2024-11-16] MEDS: Albuterol/Ipratropium 3.0-0.5 MG/3 ML Neb Soln NEB ONE (07:43)
[2024-11-16] MEDS ORDERED: Ropivacaine 0.5% 5 MG/ML 30 ML SDV ONE (07:45)
[2024-11-16] MEDS ORDERED: Midazolam 1 MG/ML 2 ML SDV ONE (07:48)
[2024-11-16] MEDS ORDERED: fentaNYL 100 MCG/2 ML SDV ONE (07:48)
[2024-11-16] MEDS ORDERED: ceFAZolin 2 GM Vial ONE (08:37)
[2024-11-16] MEDS ORDERED: Sodium Chloride 0.9% 10 ML Syringe FLUSH SCH (09:00)
[2024-11-16] MEDS ORDERED: ePHEDrine 50 MG/ML SDV ONE (09:11)
[2024-11-16] MEDS ORDERED: Esmolol 100 MG/10 ML SDV ONE (09:11)
[2024-11-16] MEDS ORDERED: Dexamethasone 4 MG/ML 5 ML MDV ONE (09:11)
[2024-11-16] MEDS ORDERED: Lactated Ringers 1,000 ML ONE (09:20)
[2024-11-16] MEDS: Morphine 8 MG, EPINEPHrine 0.3 MG, Cefuroxime 750 MG, Ketorolac 30 MG, Sodium Chloride ... PRN (09:34)
[2024-11-16] MEDS: VANCOmycin 1 GM SDV ONE (09:39)
[2024-11-16] MEDS: Tranexamic Acid 1,000 MG/10 ML Vial ONE (09:39)
[2024-11-16] MEDS: oxyCODONE 5 MG Tab PO PRN (10:46)
[2024-11-16 12:59] VITALS: BP 139/63; PULSE 71
== END 2024-11-16 13:23 | disposition home or self-care (01) ==
LOC: JD.SDS 07:00
PROVIDERS: ATTEND Orthopaedic Surgery
DX: M17.12 Unilateral primary osteoarthritis, left knee (principal); E06.3 Autoimmune thyroiditis; J43.8 Other emphysema; F33.9 Major depressive disorder, recurrent, unspecified; Z87.891 Personal history of nicotine dependence; Z79.890 Hormone replacement therapy; Z79.899 Other long term (current) drug therapy
CPT/HCPCS: 0055T; 27447; 73560; 97116; 97161; A9270; C1713; C1776; J0171; J0690; J0697; J1100; J1805; J1885; J2250; J2272; J2401; J2704; J2795; J3010; J3370; J7120; 01402; 64447; 99100; J3490